=== PATIENT | female | born 1995 | race Caucasian/White ===

== ENCOUNTER 2018-04-17 12:53 | Inpatient (IN) ==
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
--- OUTSIDE RECORDS SUMMARY | 2018-04-17 16:12 | External Medical Summary | Continuity of Care Document ---
:1997 Author Organization [facility] Address [address] [place], [place] [id number] Phone Care Team Providers Name Role Phone [...] Care Team Description For Visit Members Associates Ryland Smoking Jeffrey Referring In Women (tobacco) 2-201 Viola. Provider: Health [place], complicating 7 700 Viola Jeffrey [address], , first Medical K, 700 [place], [place], [facility] [id number], for suprvsn of [address] CLINE normal first 120, Maximo 120, tel:+21 preg, first Ryland [place], [address] trimester9 weeks [place], [place], gestation of [id number]. , [place]. tel: tel: [phone] Letty Marcel[place] Nov-2 Branden In Womens 0-201 Shelly. [facility], 7 700 [address], [place], [place], [place] [id number], , [facility] 120, tel:[phone] R[place] [phone] [place], [id number] , [place]. tel: [phone] Letty [place] Nov-0 Jeffrey In Womens 7-201 Viola. [employer] [place], 7 700 [address], [place], [place], [place] [id number], , [facility] 120, tel:[phone] Ryland [phone] [place], [id number] , [place]. tel: [phone] Family History Family Member Diagnosis Age At [...] Provider Payers Payer name Insurance type Covered republican ID Authorization(s) BCBS Out Of State [id number] [facility] Out Of State [id number] Social History Type Description Quantity Date Captured Alcohol Use Details No Caffeine Use Details soda 3 cups per day Tobacco Use Status Heavy cigarette smoker (20-39 cigs/day) Smoking Status Current every day smoker Smoking Tobacco Use Cigarette: No Details Available Cigarette: 1.5 Packs per day Details Vital Signs Date / Height Weight BMI [...]
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
--- OUTSIDE RECORDS SUMMARY | 2018-04-17 16:13 | External Medical Summary | Continuity of Care Document ---
:1997 Author Organization [facility] Address [address] [place], [place] [phone] Phone Care Team Providers Name Role Phone [...] Effective Dates (start - stop) Clinical Status Encntr for suprvsn of normal first - preg, first trimester 13 weeks gestation of - Smoking (tobacco) complicating [...] Team Description For Visit Members Associates Ryland Encntr for Jeffrey Referring In [facility] suprvsn of 0-201 Viola. Provider: Health EVELYN, normal first 7 700 Viola Jeffrey [address], preg, first Medical K, 700 [place], [place], [id number] [place] [facility] [id number], weeks gestation , [facility] [place] of 120, Maximo 120, tel:[phone] Ryland [place], [address] [place], [place], [id number]. , [place]. tel: tel: [phone] Letty Marcelino Smoking Nov-2 Jeffrey Referring In Womens (tobacco) 2-201 Viola. Provider: Wu RIVAS, complicating 7 700 Viola Jeffrey [address], , first Medical K, 700 [place], [place], trimesterEncntr [facility] [id number], for suprvsn of , [facility] normal first 120, Maximo 120, tel:[phone] preg, first Ryland Marcel[place], [address] trimester9 weeks [place], [place], gestation of [id number]. , [place]. tel: tel: [phone] Letty Marcel[place] Nov-2 Branden In Womens 0-201 Shelly. Health EVELYN, 7 700 [address], [place], [place], [place] [id number], , [facility] 120, tel:21 Ryland [address] [place], [id number] , [place]. tel: [phone] Letty Marcel[place] Nov-0 Jeffrey In Womens 7-201 Viola. [facility] [place], 7 700 [address], [place], [place], [place] [id number], , [facility] 120, tel:+[phone] Ryland [address] [place], [id number] , [place]. tel: [phone] Family History Family Member Diagnosis Age At [...] libertarian ID Authorization(s) BCBS Out Of State [id number] BCBS Out Of State [id number] Social History Type Description Quantity Date Captured Alcohol Use Details No Caffeine Use Details Unknown Tobacco Use Status Smoking Status Current every day smoker Vital Signs Date / Height Weight BMI Pulse Blood Temperature Respiratory Body Head BMI Time: Rate Pressure Rate Surface Circumference percentile Area 157.30 27.8 131/75 2017 lbs 6 mm[Hg] 2:06 kg/m PM eter (2) Chief Complaint And [...]
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
--- OUTSIDE RECORDS SUMMARY | 2018-04-17 16:13 | External Medical Summary | Continuity of Care Document ---
:1995 Author Organization [email or web address] Address [address] [place], [place] [id number] Phone Care Team Providers Name Role Phone Marcio Hardin MD Unavailable Unavailable Allergies, Adverse Reactions, Alerts Substance Reaction Severity Status No Known Drug Allergies Unknown Active Medications Medication Instructions Dosage Effective Dates Status Comments (start - stop) PLUS-DHA TAKE ONE CAPSULE BY - Active COMBO PACK MOUTH DAILY Benadryl 25 mg take 2 capsule by oral 50 MG - Active capsule route every 4 - 6 hours as needed as needed Problems Condition Effective Dates (start - stop) Clinical Status Encntr for suprvsn of normal first - preg, third trimester 34 weeks gestation of - Encntr for suprvsn of normal first - preg, third trimester 36 weeks gestation of - Matern care for oth or susp poor fetl - grth, 2nd tri, unsp 20 weeks gestation of - Matern care for oth or susp poor fetl - grth, 2nd tri, unsp 17 weeks gestation of - Maternal care for excess growth, - third trimester, unsp 30 weeks gestation of - Maternal care for excess growth, - third trimester, unsp Drug use complicating , third - trimester 32 weeks gestation of - Drug use complicating , - second trimester Encntr for suprvsn of normal first - preg, second trimester 27 weeks gestation of - Smoking (tobacco) complicating [...] second trimester 20 weeks gestation of - Encntr for suprvsn of normal first - preg, third trimester 32 weeks gestation of - Asthma Active Depression Active Migraines Active Procedures Procedure Date OB Visit No Charge Results Test Name Date and Time Measure Units Reference Range Abnormal Flag Comments Unknown Advance Directives Directive Yes / No Effective Date File Name Unknown Encounters Encounter Practice Location Reason(s) Diagnoses Date Provider Care Team Description For Visit [facility] Encntr for Jeffrey Referring In Womens suprvsn of 0-201 Viola. Provider: Wu RIVAS, normal first 8 700 Viola Jeffrey PO Box preg, third Medical K, 700 1522, [id number] [facility], weeks gestation , [facility] Dr ARDON, of 120, Maximo 120, , Ryland [place], [facility], tel: [phone] , [place]. tel: tel: [phone] Letty [place] Encntr for February- Jeffrey Referring In Womens suprvsn of 6-201 Viola. Provider: Wu RIVAS, normal first 8 700 Viola Jeffrey PO Box preg, third Medical K, 700 1522, [id number] [facility], weeks gestation , [facility] Dr ARDON, of 120, Maximo 120, [id number], Ryland [place], [facility], tel: [phone]. , [place]. tel: tel: [phone] Letty [place] May-0 Jeffrey In Womens 4-201 Viola. [facility], 8 700 PO Box Medical [address], [facility] [place], , Maximo RADON, 120, [id number], [place], [place], tel:[phone] , [place]. tel: [phone] Letty Marcel[place] Encntr for May-0 Jeffrey Referring In Womens suprvsn of 2-201 Viola. Provider: Health [place], normal first 8 700 Viola Jeffrey PO Box preg, third Medical K, 700 1522, [id number] [facility] [place], weeks gestation , [facility] Dr ARDON, of 120, Maximo 120, , Ryland [place], [place], [place], tel: [phone]. , [place]. tel: tel: [phone] Letty [place] Maternal care May-0 Jeffrey Referring In Womens Ultrasound for excess 2-201 Viola. Provider: Health EVELYN, growth, third 8 700 Viola Jeffrey PO Box trimester, Medical K, 700 1522, unspDrug use [facility] [place], complicating , [facility] Dr ARDON, , third 120, Maximo 120, [id number], [id number] Ryland [place], weeks gestation [place], tel: of [phone]. , [place]. tel: tel: [phone] Letty [place] Maternal care Apr-1 Jeffrey Referring In Womens for excess 8-201 Viola. Provider: Health [place], growth, third 8 700 Viola Jeffrey PO Box trimester, Medical K, 700 1522, unsp30 weeks [facility] [place], gestation of Dr, [facility] Dr ARDON, 120, Maximo 120, , Ryland [place], [place], tel: [phone]. , [place]. tel: tel: [phone] Letty [place] Drug use Mar-2 Jeffrey Referring In Womens complicating - Viola. Provider: Wu RIVAS, , 8 700 Viola Jeffrey PO Box second Medical K, 700 1522, trimesterEncntr [facility], for suprvsn of Dr, [facility] Dr ARDON, normal first 120, Maximo 120, [id number], preg, second Ryland [place], [id number] [place], [place], tel:+ weeks gestation [phone]. of , [place]. tel: tel: [phone] Letty [place] Encntr for Mar-0 Jeffrey Referring In Womens suprvsn of 7- Viola. Provider: Wu RIVAS, normal first 8 700 Viola Jeffrey PO Box preg, second Medical K, 700 1522, [id number] [facility], weeks gestation , [facility] Dr ARDON, of 120, Maximo 120, , Ryland [place], [place], tel:[phone]. , [place]. tel: tel: [phone] Letty [place] Encntr for Feb-0 Jeffrey Referring In Womens suprvsn of - Viola. Provider: Wu RIVAS, normal first 8 700 Viola Jeffrey PO Box preg, second Medical K, 700 1522, [id number] [facility], weeks gestation , [facility] Dr ARDON, of 120, Maximo 120, , Ryland [place], [place], tel:[phone]. , [place]. tel: tel: [phone] Letty [place] Matern care for Feb-0 Jeffrey Referring In Womens Ultrasound oth or susp poor - Viola. Provider: Wu RIVAS, fetl grth, 2nd 8 700 Viola Jeffrey PO Box tri, unsp20 Medical K, 700 1522, weeks gestation [facility], of , [facility] Dr ARDON, 120, Maximo 120, , Ryland [place], [place], tel:[phone]. , [place]. tel: tel: [phone] Letty [place] Matern care for Roger- Jeffrey Referring In Womens oth or susp poor 7-201 Viola. Provider: Wu RIVAS, fetl grth, 2nd 8 700 Viola Jeffrey PO Box tri, unsp17 Medical K, 700 1522, weeks gestation [facility], of , [facility] Dr ARDON, 120, Maximo 120, , Ryland [place], [place], tel: [phone]. , [place]. tel: tel: [phone] Letty [place] Encntr for Sep- Jeffrey Referring In Womens suprvsn of 0-201 Viola. Provider: Wu RIVAS, normal first 7 700 Viola Jeffrey PO Box preg, first Medical K, 700 1522, [email or web address] [facility] [place], weeks gestation , [facility] Dr ARDON, of 120, Maximo 120, , Ryland [place], [place], tel: [phone]. , [place]. tel: tel: [phone] Letty [place] Smoking Aug- Jeffrey Referring In Womens (tobacco) 2-201 Viola. Provider: Wu RIVAS, complicating 7 700 Viola Jeffrey PO Box , first Medical K, 700 1522, trimesterEncntr [facility], for suprvsn of Dr, [facility] Dr ARDON, normal first 120, Maximo 120, [id number], preg, first Ryland [place], trimester9 weeks [place], tel: gestation of [phone]. , [place]. tel: tel: [phone] Letty [place] Aug- Branden In Womens 0-201 Shelly. Health EVELYN, 7 700 PO [address] Medical [address], [address] [place], 120, [id number], [place], tel:[phone] , [place]. tel: [phone] Family History Family Member Diagnosis Age At [...] Ovarian Cancer Immunizations Vaccine Date Status Comments Tdap completed Source: New Immunization Record Influenza, injectable, completed Source: New Immunization Record quadrivalent, preservative free, 3 yrs or older Influenza, injectable, completed Source: Other Provider quadrivalent, preservative free, 3 yrs or older Pneumo (2 yrs or older)(PPV) completed Source: Other Provider Payers Payer name Insurance type Covered constitution party ID Authorization(s) BCBS Out Of [place] [id number] [facility] [id number] Medicaid BCBS Out Of [place] [id number] [place] [place] [id number] [facility] [id number] Medicaid Social History Type Description Quantity Date Captured Alcohol Use Details No Caffeine Use Details Unknown Tobacco Use Status Smoking Status Current every day smoker Vital Signs Date / Height Weight BMI Pulse Blood Temperature Respiratory Body Head BMI Time: Rate Pressure Rate Surface Circumference percentile Area 202.00 35.7 138/78 -2018 lbs 8 mm[Hg] 2:40 kg/m PM eter (2) Chief Complaint And Reason For Visit Unknown Chief Complaint And Reason For Visit Reason For Referral Reason For Referral Unknown Plan Of Care Date Type Action Status Goal Tobacco cessation counseling completed Appointment Renata Ennis BOOKED Future Order: Radiology Order Complete OB Ultrasound > 14 Ordered Weeks ([id number]) Future Order: Radiology Order Ultrasound OB Follow-up ([id number]) Ordered Date Type Problem Goal Intervention Status Start Date Unknown. History Of Present Illness Encounter Date Complaint History Of Present Illness This patient has no known history of present illness Functional Status Encounter Date Functional Assessment Cognitive Assessment Unknown Medications Administered Medication Instructions Dosage Effective Dates (start - stop) Status Comments Drug Treatment Unknown Instructions Date Instruction Additional Information labor signs group B strep screening gestational glucose lab screening smoking counseling domestic [...]
--- OUTSIDE RECORDS SUMMARY | 2018-04-17 16:13 | External Medical Summary | Continuity of Care Document ---
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 - complicating Encounter For Screening For - Streptococcus B 37 weeks gestation of - Drug use complicating [...] of normal first - preg, third trimester 38 weeks gestation of - Encntr for suprvsn of normal first - preg, third trimester 32 weeks gestation of - Encntr for suprvsn of normal first - preg, third trimester 34 weeks gestation of - Asthma Active Depression Active Migraines Active Procedures Procedure Date OB Visit No Charge Results Test Name Date and Time Measure Units Reference Range Abnormal Flag Comments Panel Description: Strep Gp B Culture Strep Gp B Positive Negative A Centers for Disease Control Culture 11:28:00 and Prevention (CDC) and [place] Congressof Obstetricians and Gynecologists (ACOG) guidelines for prevention ofperinatal group B streptococcal (GBS) disease specify co-collection ofa vaginal and rectal swab specimen to maximize sensitivity of GBSdetection. Per the CDC and ACOG, swabbing both the lower vagina andrectum substantially increases the yield of detection compared withsampling the vagina alone. .Penicillin G, ampicillin, or cefazolin are indicated for intrapartumprophylaxis of GBS colonization. Reflex susceptibilitytesting should be performed prior to use of clindamycin only on GBSisolates from penicillin-allergic women who are considered a high riskfor anaphylaxis. Treatment with vancomycin without additional testingis warranted if resistance to clindamycin is noted. Advance Directives Directive Yes / No Effective Date File Name Unknown Encounters Encounter Practice Location Reason(s) Diagnoses Date Provider Care Team Description For Visit [facility] Encntr for Mark-1 Jeffrey Referring In Womens suprvsn of normal 4-201 Viola. Provider: Wu RIVAS, first preg, third 8 700 Viola Jeffrey PO Box [email or web address] weeks Medical , 700 1522, gestation of [facility], , [facility] Dr ARDON, 120, Maximo 120, [id number], Ryland [place], [place], tel: [phone]. , [place]. tel: tel: [phone] [facility] Decreased Mark-0 Jeffrey Referring In Womens movements, third 7-201 Viola. Provider: Wu RIVAS, trimester, 8 700 Viola Jeffrey PO Box unspStreptococcus [facility], 700 1522, B carrier [facility], complicating , [facility] Dr ARDON, pregnancyEncounte 120, Maximo 120, , r For Ryland [place], Screening For [place], [place], tel: [phone]. weeks gestation , [place]. tel: of tel: [phone] Letty [place] Encntr for May-3 Jeffrey Referring In Womens suprvsn of normal 0-201 Viola. Provider: Wu RIVAS, first preg, third 8 700 Viola Jeffrey PO Box [email or web address] weeks Medical , 700 1522, gestation of [facility], , [facility] Dr ARDON, 120, Maximo 120, [id number], Ryland [place], [place], tel: [phone]. , [place]. tel: tel: [phone] Letty [place] Encntr for May-1 Jeffrey Referring In Womens suprvsn of normal 6-201 Viola. Provider: Wu RIVAS, first preg, third 8 700 Viola Jeffrey PO Box [email or web address] weeks [facility], 700 1522, gestation of [facility], , [facility] Dr ARDON, 120, Maximo 120, [id number], Ryland [place], [place], tel: [phone]. , [place]. tel: tel: [phone] [facility] May-0 Jeffrey In Womens 4-201 Viola. Wu RIVAS, 8 700 PO Box Medical [address], [place], , [facility] [place], 120, , [place], [place], tel: [phone] , [place]. tel: [phone] [facility] Encntr for May-0 Jeffrey Referring In Womens suprvsn of normal 2-201 Viola. Provider: Wu RIVAS, first preg, third 8 700 Viola Jeffrye PO Box weeks Medical K, 700 1522, gestation of [facility], , [facility] Dr ARDON, 120, Amximo 120, , Ryland [place], [place], tel: [phone]. , [place]. tel: tel: [phone] [facility] Maternal care for May-0 Jeffrey Referring In Womens Ultrasound excess 2-201 Viola. Provider: Wu RIVAS, growth, third 8 700 Viola Jeffrey PO Box trimester, Medical K, 700 1522, unspDrug use [facility], complicating , [facility] Dr ARDON, , third 120, Maximo 120, [id number], [id number] weeks Ryland [place], [place] gestation of [place], tel: [phone]. , [place]. tel: tel: [phone] [facility] Maternal care for Apr-1 Jeffrey Referring In Womens excess 8-201 Viola. Provider: Wu RIVAS, growth, third 8 700 Viola Jeffrey PO Box trimester, unsp30 Medical K, 700 1522, weeks gestation [facility], of , [facility] Dr ARDON, 120, Maximo 120, , Ryland [place], [place], tel: [phone]. , [place]. tel: tel: [phone] Letty [place] Drug use Mar-2 Jeffrey Referring In Womens complicating 8-201 Viola. Provider: Wu RIVAS, , second 8 700 Viola Jeffrey PO Box trimesterEncntr [facility], 700 1522, for suprvsn of [facility], melbeta first , [facility] Dr ARDON, preg, second 120, Maximo 120, , weeks Ryland [place], gestation of [place], tel:+ [phone]. , [place]. tel: tel: [phone] Letty [place] Encntr for Mar-0 Jeffrey Referring In Womens suprvsn of normal 7-201 Viola. Provider: Wu RIVAS, first preg, 8 700 Viola Jeffrey PO Box second [facility], 700 1522, [id number] weeks [facility], gestation of , [facility] Dr ARDON, 120, Maximo 120, , Ryland [place], [place], tel: [phone]. , [place]. tel: tel: [phone] Letty [place] Encntr for Feb-0 Jeffrey Referring In Womens suprvsn of normal 7-201 Viola. Provider: Wu RIVAS, first preg, 8 700 Viola Jeffrey PO Box second Medical , 700 1522, [email or web address] weeks [facility], gestation of , [facility] Dr ARDON, 120, Maximo 120, , Ryland [place], [place], tel: [phone]. , [place]. tel: tel: [phone] Letty [place] Matern care for Feb-0 Jeffrey Referring In Womens Ultrasound oth or susp poor 7-201 Viola. Provider: Wu RIVAS, fetl grth, 2nd 8 700 Viola Jeffrey PO Box tri, [email or web address] weeks Medical , 700 1522, [facility], , [facility] Dr ARDON, 120, Maximo 120, [id number], Ryland [place], [place], tel:[phone]. , [place]. tel: tel: [phone] Letty [place] Matern care for Oct- Jeffrey Referring In Womens oth or susp poor 7-201 Viola. Provider: Wu RIVAS, fetl grth, 2nd 8 700 Viola Jeffrey PO Box tri, [email or web address] weeks [facility], 700 1522, gestation of [facility], , [facility] Dr ARDON, 120, Maximo 120, , Ryland [place], [place], tel:[phone]. , [place]. tel: tel: [phone] Letty [place] Encntr for Sep- Jeffrey Referring In Womens suprvsn of normal 0-201 Viola. Provider: Wu RIVAS, first preg, first 7 700 Viola Jeffrey PO Box [email or web address] weeks [facility], 700 1522, gestation of [facility], , [facility] Dr ARDON, 120, Maximo 120, [id number], Ryland [place], [place], tel:[phone]. , [place]. tel: tel: [phone] Letty [place] Smoking (tobacco) Aug- Jeffrey Referring In Womens complicating 2-201 Viola. Provider: Wu RVIAS, , first 7 700 Viola Jeffrey PO Box trimesterEncntr [facility], 700 152, for suprvsn of [facility], normal first , [facility] Dr ARDON, preg, first 120, Maximo 120, [id number], [id number] weeks Ryland [place], gestation of [place], tel: [phone]. , [place]. tel: tel: [phone] Letty [place] Nov-2 Branden In Womens 0-201 Shelly. Health EVELYN, 7 700 PO Box Medical [address], [place] [address], [facility], 120, [id number], [facility] [place], tel:[phone] , . tel:[phone] Family History Family Member Diagnosis Age At [...] Provider Payers Payer name Insurance type Covered alliance party ID Authorization(s) BCBS Out Of State [id number] [facility] [id number] Medicaid BCBS Out Of State [id number] [employer] [place] [id number] [facility] [id number] Medicaid Social History Type Description Quantity Date Captured Alcohol Use Details No Caffeine Use Details Unknown Tobacco Use Status Smoking Status Current every day smoker Vital Signs Date / Height Weight BMI Pulse Blood Temperature Respiratory Body Head BMI Time: Rate Pressure Rate Surface Circumference percentile Area 202.90 35.9 118/2018 lbs 4 mm[Hg] 11:10 kg/m AM eter (2) Chief Complaint And Reason For Visit Unknown Chief Complaint And Reason For Visit Reason For Referral Reason For Referral Unknown Plan Of Care Date Type Action Status Goal Tobacco cessation counseling completed Appointment Renata Ennis BOOKED Future Order: Radiology Order Complete OB Ultrasound > 14 Ordered Weeks ([id number]) May-02-2018 Future Order: Radiology Order Ultrasound OB Follow-up ([id number]) Ordered Date Type Problem Goal Intervention Status [...]
--- OUTSIDE RECORDS SUMMARY | 2018-04-17 16:13 | External Medical Summary | Continuity of Care Document ---
:1995 Author Organization [facility] Address [address] [place], [place] [id number] Phone Care Team Providers Name Role Phone Marcio Hardin MD Unavailable Unavailable Allergies, Adverse Reactions, Alerts Substance Reaction Severity Status No Known Drug Allergies Unknown Active Medications Medication Instructions Dosage Effective Dates Status Comments (start - stop) PLUS-DHA TAKE ONE CAPSULE BY - Active COMBO PACK MOUTH DAILY Plus DHA take 1 capsule by Not Available - Active 18 mg iron-800 oral route every mcg-290 mg capsule day and packet Problems Condition Effective Dates (start - stop) Clinical Status Maternal care for excess growth, - third trimester, unsp 30 weeks gestation of - Matern care for [...] Team Description For Visit Members Letty Marcelino February-0 Jeffrey In Womens 4-201 Viola. Wu RIVAS, 8 700 [address], [address] Lisha, [facility] [place], 120, , [facility], tel:[phone] , [place]. tel: [phone] Letty Marcelino Encntr for February-0 Jeffrey Referring In Womens suprvsn of 2-201 Viola. Provider: Wu RIVAS, normal first 8 700 Viola Jeffrey PO Box preg, third Medical K, 700 1522, [email or web address] [facility] [place], weeks gestation , [facility] [address] ARDON, of 120, Maximo 120, , [place], [place], [facility], [place], tel:+ [phone]. , [place]. tel: tel: [phone] Letty Marcelino Maternal care February-0 Jeffrey Referring In Womens Ultrasound for excess 2-201 Viola. Provider: Wu RIVAS, growth, third 8 700 Viola Jeffrey PO Box trimester, Medical K, 700 1522, unspDrug use [facility] [place], complicating , [facility] [address] ARDON, , third 120, Maximo 120, , [email or web address] Ryland Marcelino, weeks gestation [place], [place], tel: of [phone]. , [place]. tel: tel: [phone] [facility] Maternal care Apr-1 Jeffrey Referring In Womens for excess 8-201 Viola. Provider: Wu RIVAS, growth, third 8 700 Viola Jeffrey PO Box trimester, Medical K, 700 1522, unsp30 weeks [facility], gestation of , [facility] [address] ARDON, 120, Maximo 120, , Ryland Marcelino, [place], [place], tel:[phone]. , [place]. tel: tel: [phone] [facility] Drug use Mar-2 Jeffrey Referring In Womens complicating 8-201 Viola. Provider: Wu RIVAS, , 8 700 Viola Jeffrey PO Box second Medical K, 700 1522, trimesterEncntr [facility], for suprvsn of Dr, [facility] Dr ARDON, normal first 120, Maximo 120, [id number], preg, second Ryland Marcelino, [email or web address] [place], tel: weeks gestation [phone]. of , [place]. tel: tel: [phone] Letty Marcelino Encntarjun for Mar-0 Jeffrey Referring In Womens suprvsn of 7-201 Viola. Provider: Wu RIVAS, normal first 8 700 Viola Jeffrey PO Box preg, second Medical K, 700 1522, [email or web address] [facility], weeks gestation , [facility] [address] ARDON, of 120, Maximo 120, , Ryland Marcelino, [place], tel:[phone]. , [place]. tel: tel: [phone] Letty Marcelino Encntarjun for Feb-0 Jeffrey Referring In Womens suprvsn of 7-201 Viola. Provider: Wu RIVAS, normal first 8 700 Viola Jeffrey PO Box preg, second Medical K, 700 1522, [email or web address] [facility], weeks gestation , [facility] Dr ARDON, of 120, Maximo 120, [id number], Ryland Marcelino, [place], [place], tel: [phone]. , [place]. tel: tel: [phone] Letty Marcelino Matern care for Feb-0 Jeffrey Referring In Womens Ultrasound oth or susp poor 7-201 Viola. Provider: Wu RIVAS, fetl vy, 2nd 8 700 Viola Jeffrey PO Box tri, unsp20 Medical K, 700 1522, weeks gestation [facility], of , [facility] Dr ARDON, 120, Maximo 120, , Ryland Marcel[place], [place], [place], tel: [phone]. , [place]. tel: tel: [phone] Letty Marcelino Matern care for Oct- Jeffrey Referring In Womens oth or susp poor 7-201 Viola. Provider: Wu RIVAS, sury arce, 2nd 8 700 Viola Jeffrey PO Box tri, [email or web address] Medical K, 700 1522, weeks gestation [facility], of , [facility] [address] ARDON, 120, Maximo 120, [id number], Ryland Marcel[place], [place], tel: [phone]. , [place]. tel: tel: [phone] Letty Marcelino Encntr for Dec-2 Jeffrey Referring In Womens suprvsn of 0-201 Viola. Provider: Wu RIVAS, normal first 7 700 Viola Jeffrey PO Box preg, first Medical K, 700 1522, [email or web address] [facility], weeks gestation , [facility] Dr ARDON, of 120, Maximo 120, , Ryland Marcelino, [place], [place], tel:[phone]. , [place]. tel: tel: [phone] Letty Marcelino Smoking Nov-2 Jeffrey Referring In Womens (tobacco) 2-201 Viola. Provider: [facility], complicating 7 700 Viola Jeffrey PO Box , first Medical K, 700 1522, trimesterEncntr [facility] [place], for suprvsn of , [facility] Dr ARDON, normal first 120, Maximo 120, [id number], preg, first Ryland Marcelino, trimester9 weeks [place], [place], tel:[phone] gestation of [phone]. , [place]. tel: tel: [phone] [facility] Nov-2 Branden In Womens 0-201 Shelly. [facility], 7 700 [address], [address] Lisha, Maximo [place], 120, [id number], [place], [place], tel:[phone] , [place]. tel: [phone] Letty Marcelino Nov-0 Jeffrey In Womens 7-201 Viola. [facility] [place], 7 700 [address], [address] Lisha, Maximo ARDON, 120, , [place], [place], tel:[phone] , [place]. tel: [phone] Family History Family Member Diagnosis Age At [...] republican ID Authorization(s) BCBS Out Of State [id number] [facility] [id number] Medicaid BCBS Out Of State [id number] BCBS Out Of State [id number] [facility] - [id number] Medicaid Social History Type Description Quantity Date Captured Alcohol Use Details No Caffeine Use Details Unknown Tobacco Use Status Smoking Status Current every day smoker Vital Signs Date / Height Weight BMI Pulse Blood Temperature Respiratory Body Head BMI Time: Rate Pressure Rate Surface Circumference percentile Area 198.00 35.0 130/75 -2018 lbs 7 mm[Hg] 2:58 kg/m PM eter (2) Chief Complaint And Reason For Visit Unknown Chief Complaint And Reason For Visit Reason For Referral Reason For Referral Unknown Plan Of Care Date Type Action Status Goal Tobacco cessation counseling completed Appointment Renata Ennis BOOKED Future Order: Radiology Order Complete OB Ultrasound > 14 Ordered Weeks ([id number]) Future Order: Radiology Order Ultrasound OB Follow-up ([id number]) Ordered Date Type Problem Goal Intervention Status [...]
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
--- OUTSIDE RECORDS SUMMARY | 2018-04-17 16:13 | External Medical Summary | Continuity of Care Document ---
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 OB Panel With An HIV Venpnctr fngr/heel/ear stick routne Cult, bactr, ident isolate, urine Results Test Name Date and Time Measure Units Reference Range Abnormal Flag Comments Panel Description: OBSTETRIC PANEL WHITE BLOOD CELL 13.7 Thousand/uL 3.8-10.8 H COUNT 14:26:00 RED BLOOD CELL 4.28 Million/uL 3.80-5.10 N COUNT 14:26:00 HEMOGLOBIN 13.1 g/dL 11.7-15.5 N 14:26:00 HEMATOCRIT 38.5 % 35.0-45.0 N 14:26:00 MCV 90.0 fL 80.0-100.0 N 14:26:00 MCH 30.6 pg 27.0-33.0 N 14:26:00 MCHC 34.0 g/dL 32.0-36.0 N 14:26:00 RDW 12.6 % 11.0-15.0 N 14:26:00 PLATELET COUNT 325 Thousand/uL 140-400 N 14:26:00 MPV 9.3 fL 7.5-12.5 N 14:26:00 ABSOLUTE 41626 cells/uL 4012-6172 H NEUTROPHILS 14:26:00 ABSOLUTE 2343 cells/uL 850-3900 N LYMPHOCYTES 14:26:00 ABSOLUTE 822 cells/uL 200-950 N MONOCYTES 14:26:00 ABSOLUTE 206 cells/uL 15-500 N EOSINOPHILS 14:26:00 ABSOLUTE 55 cells/uL 0-200 N BASOPHILS 14:26:00 NEUTROPHILS 75 % N 14:26:00 LYMPHOCYTES 17.1 % N 14:26:00 MONOCYTES 6.0 % N 14:26:00 EOSINOPHILS 1.5 % N 14:26:00 BASOPHILS 0.4 % N 14:26:00 ANTIBODY SCREEN, NO ANTIBODIES N RBC W/REFL ID, 14:26:00 DETECTED Reference range TITER AND AG No antibodies detected This assay is a screening test for the detection of red blood cell antibodies. The test is not to be used for pretransfusion screening or for the medical management of an alloimmunized . ABO GROUP B 14:26:00 RH TYPE RH(D) 14:26:00 POSITIVE RPR (DX) W/REFL NON-REACTIVE NON-REACTIV N TITER AND 14:26:00 E CONFIRMATORY TESTING HEPATITIS B NON-REACTIVE NON-REACTIV N SURFACE ANTIGEN 14:26:00 E RUBELLA ANTIBODY 2.98 index N Index (IGG) 14:26:00 Interpretation ----- <0.90 Not consistent with Immunity 0.90-0.99 Equivocal > or=1.00 Consistent with Immunity The presence of rubella IgG antibody suggests immunization or past or current infection withrubella virus.[place] [address]Botupln r: RITIKA BUSTILLO DO,MPH Panel Description: HIV 1/2 ANTIGEN/ANTIBODY,FOURTH GENERATION W/RFL HIV NON-REACTIVE NON-REACTIVE N HIV-1 antigen and HIV-1/HIV- 2 antibodies were AG/AB, 14:26:00 notdetected. There is no laboratory evidence of 4TH GEN HIVinfection. PLEASE NOTE: This information has been disclosed toyou from records whose confidentiality may beprotected by state law. If your state requires suchprotection, then the state law prohibits you frommaking any further disclosure of the informationwithout the specific written consent of the personto whom it pertains, or as otherwise permitted by law.A general authorization for the release of medical orother information is NOT sufficient for this purpose. For additional information please refer tohttp://education.[employer].SurePeak/faq/ZLQ392(This link is being provided for informational/educational purposes only.) The performance of this assay has not been clinicallyvalidated in patients less than 2 years old. REPORT COMMENT:FASTING:NOTest performed at [facility] [id number] [address]Uoalvbjh: RITIKA BUSTILLO DO,MPH Panel Description: Bacteria identified in Urine by Culture CULTURE, URINE, SEE NOTE CULTURE, URINE, ROUTINE MICRO ROUTINE 14:30:00 NUMBER: [id number] TEST STATUS: FINAL SPECIMEN SOURCE: URINE SPECIMEN QUALITY: ADEQUATE RESULT: Multiple organisms present, each less than 10,000 CFU/mL. These organisms, commonly found on external and internal genitalia, are considered to be colonizers. No further testing performed.REPORT COMMENT:RFASTING:UNKNOWNTest performed at [facility] [address] [address]Couqpuib: RITIKA BUSTILLO DO,MPH Panel Description: CHLAMYDIA/N. GONORRHOEAE RNA, TMA CHLAMYDIA NOT DETECTED NOT DETECTED N TRACHOMATIS RNA, 14:27:00 TMA NEISSERIA NOT DETECTED NOT DETECTED N GONORRHOEAE RNA, 14:27:00 TMA [id number] SEE NOTE This test was 14:27:00 performed using the APTIMA COMBO2 Assay([employer] The analytical performance characteristics of this assay, when used to test SurePath specimens havebeen determined by [employer]. REPORT COMMENT:FASTING:UNKNO WNTest performed at [facility] [address] [address]Vqnpieoz: RITIKA BUSTILLO DO,MPH Advance Directives Directive Yes / No Effective Date File Name Unknown Encounters Encounter Practice Location Reason(s) Diagnoses Date Provider Care Team Description For Visit Members Letty Marcelino Smoking Nov-2 Jeffrey Referring In Womens (tobacco) 2-201 Viola. Provider: [facility], complicating 7 700 Viola Jeffrey [address], , first Medical K, 700 [place], [place], trimesterEncntr [facility] , for suprvsn of , [facility] normal first 120, Maximo 120, tel:[phone] preg, first Ryland Marcelino, [address] trimester9 weeks [place], [place], gestation of [id number]. , [place]. tel:+316 tel: [phone] Letty Marcelino Nov-2 Branden In Womens 0-201 Shelly. [facility], 7 700 [address], [place], [place], [place] [id number], , [facility] 120, tel:[phone] [place] [address] [place], [id number] , [place]. tel: [phone] Letty Marcelino Nov-0 Jeffrey In Womens 7-201 Viola. [facility], 7 700 [address], [place], [place], [place] [id number], [facility] 120, tel:[phone] R[place], [address] [place], [id number] , [place]. tel: [phone] Family History Family Member Diagnosis Age At [...] Provider Payers Payer name Insurance type Covered democrat ID Authorization(s) BCBS [facility] Of [facility] [id number] BCBS Out Of State [id number] Social History Type Description Quantity Date Captured Alcohol Use Details No Caffeine Use Details soda 3 cups per day Tobacco Use Status Smoking Status Current every day smoker Smoking Tobacco Use Cigarette: No Details Available Cigarette: 1.5 Packs per day Details Vital Signs Date / Height Weight BMI Pulse Blood Temperature Respiratory Body Head BMI Time: Rate Pressure Rate Surface Circumference percentile Area 151.10 26.7 131/75 2017 lbs 6 mm[Hg] 1:35 kg/m PM eter (2) Chief Complaint And [...]
--- OUTSIDE RECORDS SUMMARY | 2018-04-17 16:13 | External Medical Summary | Continuity of Care Document ---
:1995 Author Organization [facility] Address [address] [place], [place] [id number] Phone Care Team Providers Name Role Phone [...] first trimester 13 weeks gestation of - Asthma Active Depression Active Migraines Active Procedures Procedure Date Unknown Results Test Name Date and Time Measure Units Reference Range Abnormal Flag Comments Unknown Advance Directives Directive Yes / No Effective Date File Name Unknown Encounters Encounter Practice Location Reason(s) Diagnoses Date Provider Care Team Description For Visit Members [facility] [place] En[facility]tr for Sep- Jeffrey Referring In [facility] suprvsn of 0-201 Viola. Provider: Wu RIVAS, normal first 7 700 [place]ola Jeffrey [address], preg, first Medical [facility], [address] [place], [place], [id number] [facility] [id number], weeks gestation [facility] [place] of 120, Maximo 120, tel:[phone] [place] Marcelino, [address] [place], [place], [id number]. , [place]. tel: tel: [phone] Letty Marcelino Nov-2 Jeffrey In Womens 9-201 [place]ola. [facility], 7 700 [address], [place], [place], [facility] [id number], [address], tel:[phone] [place], [address] [place], [id number] , [place]. tel: [phone] Letty Marcelino Smoking Nov-2 Jeffrey Referring In Womens (tobacco) 2-201 Viola. Provider: Health EVELYN, complicating 7 700 Viola Jeffrey [address], , [facility], [address] [place], [place], trimesterEncntr [facility] , for suprvsn of , [place] normal first 120, Maximo 120, tel:[phone] preg, first [place]yland Marcelino, [address] trimester9 weeks [place], [place], gestation of [id number]. , [place]. tel: tel: [phone] Letty Marcelino Nov-2 Branden In Womens 0-201 Shelly. [facility] EVELYN, 7 700 [address], [place], [place], [facility] [id number], , [address], tel:[phone] [place] [address] [place], [id number] , [place]. tel: [phone] Letty Marcelino Nov-0 Jeffrey In Womens 7-201 Viola. Health EVELYN, 7 700 [address], [place], [place], [facility] [id number], Dr [address], tel:[phone] [place] [address] [place], [id number] , [place]. tel: [phone] Family History Family Member Diagnosis Age At [...] party ID Authorization(s) [employer] Out [employer] [place] [id number] [employer] [place] [id number] Social History Type Description Quantity Date Captured [...]
[2018-04-17] MEDS ORDERED: SALINE FLUSH 10ml SYRINGE IV PRN (16:19)
[2018-04-17] MEDS ORDERED: ZOLPIDEM 5 MG TABLET PO PRN (16:19)
[2018-04-17] MEDS ORDERED: ACETAMINOPHEN 500 MG TABLET PO PRN (17:28)
[2018-04-17] MEDS ORDERED: METHYLERGONOVINE 0.2 MG/ML INJECTION IM PRN (17:28)
[2018-04-17] MEDS ORDERED: CARBOPROST 250 MCG/ML INJECTION IM PRN (17:28)
[2018-04-17] MEDS ORDERED: CALCIUM CARBONATE Chewable 500mg TABLET PO PRN (17:28)
[2018-04-17] MEDS ORDERED: MAG-AL + SIM ORAL LIQUID 30ml PO PRN (17:28)
[2018-04-17] MEDS ORDERED: AMPICILLIN 2 GM in NS 100 ML IV ONE (17:30)
[2018-04-17] MEDS: LR 1,000 ML IV PRN (17:57)
[2018-04-17 20:17] VITALS: BMI 36.6
[2018-04-17] MEDS: HYDROCODONE/APAP 5mg/325mg TABLET PO PRN (21:01)
[2018-04-17] MEDS: AMPICILLIN 1 GM in NS 100 ML IV SCH (21:33)
[2018-04-18] MEDS: AMPICILLIN 1 GM in NS 100 ML IV SCH ×6 (01:30→21:37)
[2018-04-18] MEDS ORDERED: OXYTOCIN DRIP 30 UNIT/500 ML ML IV PRN (05:00)
[2018-04-18] MEDS: D5LR 1,000 ML IV PRN ×2 (05:00→14:40)
[2018-04-18] MEDS: LR 1,000 ML IV PRN ×2 (05:00→18:53)
--- NOTE | 2018-04-18 07:30 | Anesthesia Preoperative Report ---
Anesthesia Epidural/Spinal Rec - Date and Time Date: 04/18/18 Procedure: Labor Epidural Plan: Epidural - Vital Signs Vital Signs: Temperature 98.4 F 04/17/18 16:18 Pulse Rate 89 04/17/18 16:18 Respiratory Rate 20 04/17/18 16:18 Blood Pressure 131/65 04/17/18 16:18 Pulse Oximetry 98 04/17/18 16:18 NPO since: 429 /Para: P:0 Heart Rate: 126 - Medictaions & Allergies Inpatient Medications: Current Medications Acetaminophen (Tylenol) 500 - 1,000 mg PO Q4H PRN PRN Reason: Pain Hydrocodone Bitart/Acetaminophen ([place] 5/325) 1 - 2 tab PO Q4H PRN PRN Reason: Pain Last Admin: 04/17/18 21:01 Dose: 1 tab Al Hydroxide/Mg Hydroxide (Maalox Plus) 30 ml PO Q3H PRN PRN Reason: Indigestion Calcium Carbonate (Tums) 500 - 1,000 mg PO Q2H PRN PRN Reason: Indigestion Carboprost Tromethamine (Hemabate) 250 mcg IM O PRN PRN Reason: .Downtime Ampicillin Sodium 1 gm/ Sodium (Chloride) 100 mls @ 200 mls/hr IV Q4H JAGRUTI Last Admin: 04/18/18 05:36 Dose: 200 mls/hr Lactated Ringer's (Lactated Ringers) 1,000 mls @ 999 mls/hr IV .Q1H1M PRN Last Admin: 04/18/18 05:00 Dose: 999 mls/hr Dextrose/Lactated Ringer's (Dextrose 5%-Lactated Ringers) 1,000 mls @ 125 mls/ hr IV .Q8H PRN PRN Reason: Labor Last Admin: 04/18/18 05:00 Dose: 125 mls/hr Oxytocin (Pitocin Drip) 30 unit in 500 mls @ 2 mls/hr IV .Q24H PRN; Protocol PRN Reason: Induction/Augmentation Last Admin: 04/18/18 05:41 Dose: 2 mls/hr Methylergonovine Maleate (Methergine) 0.2 mg IM O PRN Misoprostol (Cytotec) 800 mcg DC ONCE PRN Sodium Chloride (Iv Flush) 10 - 80 ml IV PRN PRN PRN Reason: Flushing Last Admin: 04/17/18 17:30 Dose: 30 ml Zolpidem Tartrate (Ambien) 5 mg PO O PRN PRN Reason: Insomnia Last Admin: 04/17/18 21:01 Dose: 5 mg Allergies/Adverse Reactions: Allergies Allergy/AdvReac Type Severity Reaction Status Date / Time No Known Allergies Allergy Verified 04/18/18 00:17 - Home Medications Home Medications: Home Medications Medication Instructions Recorded Confirmed Type Vit Calc,Iron,Folic 1 each PO DAILY 03/28/18 03/28/18 History [ Vitamins] - Medical History Respiratory: Reports: Asthma (as a child), Bronchitis (as a child), Pneumonia ( x1) Neuro/Musculoskeletal: Reports: Back Problems, Depression Other History: Reports: Now - Surgical History HEENT Surgeries: Reports: Tonsillectomy (1999), Other (bilateral lymphectomy) Anesthesia Reactions: None Hx Family Anesthesia Reaction: No History of Motion Sickness: No - Social History Smoking Status: Current every day smoker Packs per day: 0.5 Pack-years: 5 Second Hand Exposure: No Substance Use Type: former substance user, marijuana (quit on July 2017 after found out ), methamphetamine (quit 2016) Hx Chewing Tobacco Use: No - Pertinent Findings Lab Data: CBC and BMP 04/17/18 16:25 - Physical Exam Respiratory Exam: lungs clear, bilateral breath sounds equal Cardiovascular Exam: regular rate and rhythm - Airway Assessment Mallampati Score: II TMD: 3 Fingerbreadths Neck Extension: good Overall Assessment: no airway concerns - ASA ASA Score: 3 - Discussion Discussion: Discussed risks/options/alternatives of anesthesia and questions answered. Patient consents. Nursing pain assessment noted. Attestation Statement: Prior to the delivery of any anesthetic medication, I examined the patient, developed the plan, obtained the patient's consent and discussed the risk and benefits of the procedure with the patient/guardian.
[2018-04-18] MEDS ORDERED: ONDANSETRON 4 MG/2 ML INJECTION IVP PRN (10:45)
[2018-04-18] MEDS ORDERED: ROPIVACAINE 1% 10MG/ML INJ 200 MG, SUFentanil 50 MCG in NS 100 ML EPI PRN (10:45)
[2018-04-18] MEDS ORDERED: DiphenhydrAMINE 50 MG/ML INJECTION IVP PRN (10:45)
[2018-04-18] MEDS ORDERED: NALOXONE 0.4 MG/ML INJECTION IVP PRN (10:45)
[2018-04-19] MEDS ORDERED: LIDOCAINE 2%/EPI 1:200,000 20ml SDV PF ONE
[2018-04-19] MEDS: AMPICILLIN 1 GM in NS 100 ML IV SCH (01:34)
[2018-04-19] MEDS ORDERED: DiphenhydrAMINE 25 MG CAPSULE PO PRN (02:40)
[2018-04-19] MEDS ORDERED: HYDROCORTISONE 2.5% CREAM 30gm RECTALLY PRN (02:40)
[2018-04-19] MEDS ORDERED: OXYTOCIN DRIP 30 UNIT/500 ML ML IV SCH (02:45)
[2018-04-19] MEDS: IBUPROFEN 800 MG TABLET PO PRN ×2 (03:51→14:44)
[2018-04-19] MEDS: HYDROCODONE/APAP 5mg/325mg TABLET PO PRN ×2 (03:52→14:44)
[2018-04-19] MEDS ORDERED: DOCUSATE CALCIUM 240 MG CAPSULE PO SCH (09:00)
--- NOTE | 2018-04-19 11:50 | Labor and Delivery Note ---
DATE OF DELIVERY 04/19/2018 DELIVERY NOTE Renata is a 22-year-old, 1, at 40 weeks 1 day gestational age who was brought in the evening of 04/17/2018 for Lynn bulb cervical ripening. The next morning she was started on Pitocin. She was also started on antibiotics for her group B strep status. Her membranes were ruptured artificially returning clear fluids. She received an epidural. She progressed very slowly throughout labor. An IUPC was placed to one point to document adequate contractions. When she got to be complete, baby was in the LOT position. She pushed for approximately 2 hours with a small amount of descent. She was exhausted and uncomfortable at this point, so Anesthesia came and gave her a bolus. She was able to labor down for 30-45 minutes. We discussed an operative vaginal delivery. Baby was not in a good position for forceps, so I offered a vacuum extraction. Risks of this were explained including, but not limited to, scalp injury and brain hemorrhage. The hard Mityvac cup was placed and maternal tissue was extruded. Over the course of four contractions I was able to get a small amount of descent. The problem was I was not able to get a good suction on the head due to the significant caput and I had two pop-offs, so I put the vacuum on hold and had her push again for a while. Later, I used the vacuum again with two contractions and got my third pop-off, so I stopped using the vacuum. I was able to bring the baby's head down to the pelvic floor. She continued pushing and finally delivered the baby's head in the SERAFIN position. Baby was stunned at delivery but had a good heart rate, so she was initially placed on mom's abdomen. The cord clamping was delayed for approximately 90 seconds and then the baby was taken to the warmer for further resuscitation. Baby is a viable female infant, Apgars 6/8/9, weight 3472 g, name "Mary." Mom pushed for a total of 4 hours. The placenta delivered spontaneously. She had a right vaginal laceration that was repaired with 2-0 Vicryl. Her uterus was mildly atonic, so she was given a dose of Methergine and her lochia was good at that point. Mom and baby tolerated the delivery well. [facility]
[2018-04-20] MEDS: HYDROCODONE/APAP 5mg/325mg TABLET PO PRN ×2 (00:13→20:23)
[2018-04-20] MEDS: IBUPROFEN 800 MG TABLET PO PRN ×2 (00:13→20:23)
--- NOTE | 2018-04-20 07:47 | OB/GYN Progress Note ---
OB-PP Progress Note - General PPD1 Maternal Group B Strep: Positive Maternal Rh: positive Maternal Rubella Status: Immune - Subjective Date: 04/20/18 Lochia: Minimal Pain: controlled Voiding: voiding - Objective Vital Signs: Last Vital Signs Temp 97.9 F 04/20/18 07:05 Pulse 72 04/20/18 07:05 Resp 16 04/20/18 07:05 BP 120/65 04/20/18 07:05 Pulse Ox 98 04/20/18 07:05 Urine Output: good Abdomen: fundus firm, non-tender Extremities: non-tender Laboratory: Laboratory Results - last 24 hr 04/19/18 07:55 WBC 24.5 H RBC 3.94 L Hgb 11.3 L Hct 34.7 L MCV 88.1 MCH 28.7 MCHC 32.6 RDW Std Deviation 43.0 Plt Count 213 MPV 9.3 L - Assessment Assessment: , GBS positive - Plan Plan: routine care Expected date of discharge: 04/21/18
[2018-04-20 22:33] VITALS: RESP 16
[2018-04-21 03:58] VITALS: BP 127/72; PULSE 78; TEMP 98.2; O2SAT 97
--- NOTE | 2018-04-21 08:21 | OB/GYN Progress Note ---
OB-PP Progress Note - General PPD2 Maternal Group B Strep: Positive Maternal Rh: positive Maternal Rubella Status: Immune - Subjective Date: 04/21/18 Lochia: Minimal Pain: controlled Voiding: voiding - Objective Vital Signs: Last Vital Signs Temp 98.2 F 04/21/18 03:57 Pulse 78 04/21/18 03:57 Resp 16 04/21/18 03:57 BP 127/72 04/21/18 03:57 Pulse Ox 97 04/21/18 03:57 General: alert and oriented Abdomen: fundus firm, non-tender Extremities: non-tender - Assessment Assessment: - Plan Plan: routine care, discharge home, continue PNV
== END 2018-04-21 12:00 | disposition home or self-care (01) | DRG 775 ==
LOC: MC 16:06
PROVIDERS: ADMIT Obstetrics & Gynecology; ATTEND Obstetrics & Gynecology